=== PATIENT | male | born 1945 | race Asian ===

== ENCOUNTER → 2016-07-15 | Outpatient (CLI) | payer MEDICARE, OTHER | END | disposition home or self-care (01) | LOC: RADPV 09:55 | PROVIDERS: ATTEND Physician Assistant | DX: M47.816 Spondylosis without myelopathy or radiculopathy, lumbar region (principal); M51.36 Other intervertebral disc degeneration, lumbar region; M51.37 Other intervertebral disc degeneration, lumbosacral region; M25.78 Osteophyte, vertebrae; M12.88 Other specific arthropathies, not elsewhere classified, other specified site; I70.0 Atherosclerosis of aorta | CPT/HCPCS: 72110 ==

== ENCOUNTER → 2016-08-11 | Outpatient (CLI) | payer MEDICARE, OTHER | END | disposition home or self-care (01) | LOC: RADMN 08:52 | PROVIDERS: ATTEND Physician Assistant | DX: M51.37 Other intervertebral disc degeneration, lumbosacral region (principal) | CPT/HCPCS: 72148 ==